=== PATIENT | female | born 1945 | race Caucasian/White ===

== ENCOUNTER 2017-11-08 10:54 | Observation (INO) | payer OTHER, MEDICARE ==
[2017-11-08] MEDS: NS 500 ML IV (11:40)
[2017-11-08 12:08] LABS: BASO % 0.6 % (0.0-1.0); EOS # 0.1 10^3/uL (0.0-0.50); EOS % 2.1 % (0.0-3.0); HEMATOCRIT 38.1 % (36.0-47.0); HEMOGLOBIN 12.6 g/dl (12.0-15.5); IMMATURE GRANULOCYTE % 0.1 % (0-3.0); LYMPH # 2.6 10^3/uL (1.5-4.5); LYMPH % 38.5 % (24.0-44.0); MEAN CORPUSCULAR HEMOGLOBIN 30.9 pg (27.0-33.0); MEAN CORPUSCULAR HGB CONC 33.1 g/dl (32.0-36.5); MEAN CORPUSCULAR VOLUME 93.4 fl (80.0-96.0); MONO # 0.4 10^3/uL (0.0-0.8); MONO % 5.9 % (0.0-5.0); NEUTROPHILS # 3.6 10^3/uL (1.8-7.7); NEUTROPHILS % 52.8 % (36.0-66.0); PLATELET COUNT, AUTOMATED 275 10^3/uL (150-450); RED BLOOD COUNT 4.08 10^6/uL (4.00-5.40); RED CELL DISTRIBUTION WIDTH 12.8 % (11.5-14.5); WHITE BLOOD COUNT 6.8 10^3/uL (4.0-10.0)
[2017-11-08 12:15] LABS: INR 1.19; PROTHROMBIN TIME 15.3 SECONDS (12.4-14.5)
[2017-11-08 12:16] LABS: PARTIAL THROMBOPLASTIN TIME 34.9 SECONDS (26.8-37.9)
[2017-11-08 12:21] LABS: ANION GAP 10 MEQ/L (8-16); BLOOD UREA NITROGEN 24 MG/DL (7-18); CALCIUM LEVEL 9.4 MG/DL (8.8-10.2); CARBON DIOXIDE LEVEL 29 MEQ/L (21-32); CHLORIDE LEVEL 103 MEQ/L (98-107); CREATININE FOR GFR 0.96 MG/DL (0.55-1.30); GLOMERULAR FILTRATION RATE > 60.0 (>39); GLUCOSE, FASTING 79 MG/DL (70-100); SODIUM LEVEL 142 MEQ/L (136-145)
[2017-11-08 12:24] LABS: CPK CREATINE PHOSPHOKINASE 88 U/L (26-192); TROPONIN I 0.29 NG/ML (< 0.10)
[2017-11-08 12:25] LABS: CK-MB VALUE MASS 1.6 NG/ML (<3.6); MB/CK RELATIVE INDEX 1.81 (< OR =4)
[2017-11-08] MEDS ORDERED: ISOVUE-370 76% 100ML VIAL (Q9967) As Ordered (12:58)
[2017-11-08] MEDS: ASPIRIN 81 MG CHEW TABLET PO (13:15)
[2017-11-08 13:51] LABS: CK-MB VALUE MASS 1.5 NG/ML (<3.6); CPK CREATINE PHOSPHOKINASE 71 U/L (26-192); MB/CK RELATIVE INDEX 2.11 (< OR =4); TROPONIN I 0.29 NG/ML (< 0.10)
[2017-11-08] MEDS ORDERED: ACETAMINOPHEN 500 MG TAB PO (15:15)
[2017-11-08 20:15] LABS: CK-MB VALUE MASS 1.8 NG/ML (<3.6); CPK CREATINE PHOSPHOKINASE 75 U/L (26-192)
[2017-11-08] MEDS ORDERED: SLF 3 ML SYR IV (20:15)
[2017-11-08] MEDS: SLF 3 ML SYR IV (20:24)
[2017-11-08] MEDS: FLECAINIDE 50MG TABLET PO (20:24)
[2017-11-08] MEDS: APIXABAN 5 MG TAB (ELIQUIS) PO (20:24)
[2017-11-09 05:49] LABS: BASO % 0.5 % (0.0-1.0); EOS # 0.2 10^3/uL (0.0-0.50); EOS % 3.9 % (0.0-3.0); HEMATOCRIT 37.3 % (36.0-47.0); HEMOGLOBIN 12.2 g/dl (12.0-15.5); IMMATURE GRANULOCYTE % 0.2 % (0-3.0); LYMPH # 2.3 10^3/uL (1.5-4.5); LYMPH % 39.4 % (24.0-44.0); MEAN CORPUSCULAR HEMOGLOBIN 30.2 pg (27.0-33.0); MEAN CORPUSCULAR HGB CONC 32.7 g/dl (32.0-36.5); MEAN CORPUSCULAR VOLUME 92.3 fl (80.0-96.0); MONO # 0.4 10^3/uL (0.0-0.8); MONO % 7.2 % (0.0-5.0); NEUTROPHILS # 2.9 10^3/uL (1.8-7.7); NEUTROPHILS % 48.8 % (36.0-66.0); PLATELET COUNT, AUTOMATED 254 10^3/uL (150-450); RED BLOOD COUNT 4.04 10^6/uL (4.00-5.40); WHITE BLOOD COUNT 5.9 10^3/uL (4.0-10.0)
[2017-11-09] MEDS: SLF 3 ML SYR IV (06:00)
[2017-11-09 06:10] LABS: ANION GAP 7 MEQ/L (8-16); BLOOD UREA NITROGEN 20 MG/DL (7-18); CALCIUM LEVEL 8.8 MG/DL (8.8-10.2); CARBON DIOXIDE LEVEL 29 MEQ/L (21-32); CHLORIDE LEVEL 107 MEQ/L (98-107); CREATININE FOR GFR 0.92 MG/DL (0.55-1.30); GLOMERULAR FILTRATION RATE > 60.0 (>39); GLUCOSE, FASTING 67 MG/DL (70-100); POTASSIUM SERUM 3.9 MEQ/L (3.5-5.1); SODIUM LEVEL 143 MEQ/L (136-145); TROPONIN I 0.14 NG/ML (< 0.10)
[2017-11-09] MEDS: APIXABAN 5 MG TAB (ELIQUIS) PO (08:11)
[2017-11-09] MEDS: LOSARTAN 25 MG TAB PO (08:11)
[2017-11-09] MEDS: ASPIRIN 81 MG ENTERIC TAB PO (08:11)
[2017-11-09] MEDS: VITAMIN D 1,000 INTERNATIONAL UNITS TABLET PO (08:11)
[2017-11-09] MEDS: FLECAINIDE 50MG TABLET PO (08:11)
== END 2017-11-09 11:11 | disposition home or self-care (01) ==
LOC: M ED 10:54 → M ED INP 15:14 → M PCU 16:42
DX: S20.219A Contusion of unspecified front wall of thorax, initial encounter (principal); V49.40XA Driver injured in collision with unspecified motor vehicles in traffic accident, initial encounter; Y92.410 Unspecified street and highway as the place of occurrence of the external cause; Y99.9 Unspecified external cause status; Y93.9 Activity, unspecified; I48.0 Paroxysmal atrial fibrillation; Z79.02 Long term (current) use of antithrombotics/antiplatelets; Z79.82 Long term (current) use of aspirin; I10 Essential (primary) hypertension; R79.89 Other specified abnormal findings of blood chemistry; Z79.899 Other long term (current) drug therapy
CPT/HCPCS: Q9967

== ENCOUNTER 2019-03-13 02:47 | Emergency (ER) | payer MEDICARE, OTHER ==
[~2019-03-13] VITALS: Ht 154.9 cm; Wt 51.8 kg
[~2019-03-13 02:47] MED LIST: ACET500T15 PO; ASPI81CH49 PO; ASPI81TAEC PO; ELIQ5TAB PO; FLEC25TA PO; FLEC50HA PO; LOPR1TAB6 PO; LOSA25TA14 PO; NO HOME MEDS; VITA-122 PO; vitaminD OR
[2019-03-13 03:18] LABS: BASO % 0.7 % (0.0-1.0); EOS # 0.3 10^3/uL (0.0-0.5); EOS % 4.2 % (0.0-3.0); HEMATOCRIT 41.9 % (36.0-47.0); HEMOGLOBIN 13.5 g/dl (12.0-15.5); LYMPH # 2.7 10^3/uL (1.5-5.0); LYMPH % 44.3 % (24.0-44.0); MEAN CORPUSCULAR HEMOGLOBIN 30.8 pg (27.0-33.0); MEAN CORPUSCULAR HGB CONC 32.2 g/dl (32.0-36.5); MEAN CORPUSCULAR VOLUME 95.4 fl (80.0-96.0); MONO # 0.4 10^3/uL (0.0-0.8); MONO % 6.7 % (0.0-5.0); NEUTROPHILS # 2.7 10^3/uL (1.5-8.5); NEUTROPHILS % 43.9 % (36.0-66.0); PLATELET COUNT, AUTOMATED 272 10^3/uL (150-450); RED BLOOD COUNT 4.39 10^6/uL (4.00-5.40)
[2019-03-13 03:43] LABS: BLOOD UREA NITROGEN 22 MG/DL (7-18); CALCIUM LEVEL 9.3 MG/DL (8.8-10.2); CARBON DIOXIDE LEVEL 29 MEQ/L (21-32); CHLORIDE LEVEL 107 MEQ/L (98-107); CK-MB VALUE MASS 1.2 NG/ML (<3.6); CPK CREATINE PHOSPHOKINASE 72 U/L (26-192); CREATININE FOR GFR 1.14 MG/DL (0.55-1.30); GLOMERULAR FILTRATION RATE 49.6 (>39); GLUCOSE, FASTING 91 MG/DL (70-100); MB/CK RELATIVE INDEX 1.67 (< OR =4); SODIUM LEVEL 142 MEQ/L (136-145); TROPONIN I < 0.02 NG/ML (< 0.10)
[2019-03-13 07:24] LABS: FREE THYROXINE INDEX 3.6 % (1.3-4.8); MAGNESIUM LEVEL 1.9 MG/DL (1.8-2.4); T UPTAKE 34 % (30-39); THYROXINE (T4) 10.6 UG/DL (4.5-12.0)
[2019-03-13 08:18] VITALS: BP 130/70
--- NOTE | 2019-03-13 09:42 | REP ---
Single view chest: 03/13/2019. Indication: Chest pain. Comparison: November 08, 2017. Findings: The lungs are clear. There is no pleural effusion or pneumothorax. Cardiomediastinal silhouette is unremarkable. Impression: No acute cardiopulmonary process. Electronically Signed by Claude Allan DO 03/13/2019 09:34 A
--- NOTE | 2019-03-13 10:28 | ECGEPIP ---
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
== END 2019-03-13 08:55 | disposition home or self-care (01) ==
LOC: M ED 02:47
DX: R00.2 Palpitations (principal); R00.0 Tachycardia, unspecified; I10 Essential (primary) hypertension; Z79.01 Long term (current) use of anticoagulants; Z86.79 Personal history of other diseases of the circulatory system; Z88.8 Allergy status to other drugs, medicaments and biological substances

== ENCOUNTER 2019-09-02 07:45 | Emergency (ER) | payer MEDICARE ==
[~2019-09-02] VITALS: Ht 157.5 cm; Wt 50.0 kg
[2019-09-02] MEDS ORDERED: NS 1,000 ML IV ONE (08:15)
[2019-09-02] MEDS ORDERED: NITROGLYCERIN 0.4 MG SUBL TABLET SL PRN (08:15)
[2019-09-02 08:19] VITALS: BP 176/91
[2019-09-02 08:26] LABS: BASO % 0.6 % (0.0-1.0); EOS # 0.1 10^3/uL (0.0-0.5); EOS % 1.7 % (0.0-3.0); HEMATOCRIT 39.5 % (36.0-47.0); HEMOGLOBIN 12.9 g/dl (12.0-15.5); LYMPH # 1.2 10^3/uL (1.5-5.0); LYMPH % 22.2 % (24.0-44.0); MEAN CORPUSCULAR HGB CONC 32.7 g/dl (32.0-36.5); MONO # 0.4 10^3/uL (0.0-0.8); MONO % 6.6 % (0.0-5.0); NEUTROPHILS # 3.7 10^3/uL (1.5-8.5); NEUTROPHILS % 68.7 % (36.0-66.0); PLATELET COUNT, AUTOMATED 287 10^3/uL (150-450); RED BLOOD COUNT 4.16 10^6/uL (4.00-5.40); WHITE BLOOD COUNT 5.4 10^3/uL (4.0-10.0)
[2019-09-02] MEDS ORDERED: ATROPINE SULF 1MG/10ML SYRINGE (J0461) As Ordered ONE (08:27)
[2019-09-02 08:34] LABS: INR 1.42
[2019-09-02 08:35] LABS: PARTIAL THROMBOPLASTIN TIME 33.9 SECONDS (25.0-38.4)
[2019-09-02] MEDS ORDERED: ACETAMINOPHEN TAB 650MG DOSE (2X325MG) PO ONE (08:45)
[2019-09-02 08:54] LABS: ALBUMIN 3.7 GM/DL (3.2-5.2); ALT/SGPT 16 U/L (12-78); BILIRUBIN,DIRECT 0.1 MG/DL (0.0-0.2); BILIRUBIN,TOTAL 0.5 MG/DL (0.2-1.0); BLOOD UREA NITROGEN 22 MG/DL (7-18); CALCIUM LEVEL 9.2 MG/DL (8.8-10.2); CARBON DIOXIDE LEVEL 29 MEQ/L (21-32); CHLORIDE LEVEL 103 MEQ/L (98-107); CPK CREATINE PHOSPHOKINASE 52 U/L (26-192); CREATININE FOR GFR 1.06 MG/DL (0.55-1.30); FREE T4 1.09 NG/DL (0.76-1.46); GLOMERULAR FILTRATION RATE 53.9 (>39); GLUCOSE, FASTING 103 MG/DL (70-100); LIPASE 91 U/L (73-393); MB/CK RELATIVE INDEX 1.92 (< OR =4); POTASSIUM SERUM 3.9 MEQ/L (3.5-5.1); SODIUM LEVEL 140 MEQ/L (136-145); TOTAL PROTEIN 7.7 GM/DL (6.4-8.2); TROPONIN I < 0.02 NG/ML (< 0.10)
--- NOTE | 2019-09-02 10:07 | REP ---
CHEST: REASON: Chest pain. FINDINGS: The technique utilized in obtaining the radiograph has magnified the cardiac silhouette and accentuated the interstitial markings. The superior mediastinal structures are midline. The cardiac silhouette is unremarkable in size, shape, and position. The diaphragmatic surfaces of the lungs are regular, and the costophrenic angles are clear. The pulmonary de la torre are clear. The imaged osseous structures are intact. IMPRESSION: There is no acute cardiopulmonary disease. Electronically Signed by Mitch Grove DO 09/02/2019 10:45 A
--- NOTE | 2019-09-02 11:39 | ECGEPIP ---
[facility] - ED Test Date: 2019-09-02 Pat Name: TRISH JOHNSON Department: Room: - Gender: Female Manager Epic: brandy : 1945 Requested By: Fortino Singh Order Number: [id number] Reading MD: Fortino Singh Measurements Intervals [place] Rate: 71 P: 20 [place]: 194 QRS: 52 QRSD: 86 T: 59 QT: 385 QTc: 421 Interpretive Statements SINUS RHYTHM MODERATE ST DEPRESSION DELAYED R WAVE PROGRESSION BASELINE WANDERING MAY AFFECT READING CW 03/13/[address] T WAVE CHANGES Electronically Signed on 09-02-2019 11:39:52 EDT by Fortino Singh
--- NOTE | 2019-09-02 11:40 | ECGEPIP ---
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
[2019-09-02 13:24] LABS: CK-MB VALUE MASS < 1.0 NG/ML (<3.6); CPK CREATINE PHOSPHOKINASE 40 U/L (26-192); TROPONIN I < 0.02 NG/ML (< 0.10)
[2019-09-02 15:14] LABS: CK-MB VALUE MASS < 1.0 NG/ML (<3.6); CPK CREATINE PHOSPHOKINASE 43 U/L (26-192); MB/CK RELATIVE INDEX 2.33 (< OR =4); TROPONIN I < 0.02 NG/ML (< 0.10)
[2019-09-02 15:46] VITALS: BP 119/64
--- NOTE | 2019-09-02 15:57 | ECGEPIP ---
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
--- NOTE | 2019-09-02 15:58 | ECGEPIP ---
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
== END 2019-09-02 15:49 | disposition home or self-care (01) ==
LOC: M ED 07:45
DX: R07.9 Chest pain, unspecified (principal); I48.20 Chronic atrial fibrillation, unspecified; I10 Essential (primary) hypertension; F17.210 Nicotine dependence, cigarettes, uncomplicated; Z88.6 Allergy status to analgesic agent; Z79.899 Other long term (current) drug therapy

== ENCOUNTER 2019-12-12 05:52 | Emergency (ER) | payer MEDICARE ==
[~2019-12-12] VITALS: Ht 154.9 cm; Wt 47.0 kg
[2019-12-12 06:39] LABS: BASO % 0.5 % (0.0-1.0); EOS % 0.5 % (0.0-3.0); HEMATOCRIT 39.8 % (36.0-47.0); HEMOGLOBIN 14.1 g/dl (12.0-15.5); LYMPH # 1.1 10^3/uL (1.5-5.0); LYMPH % 18.7 % (24.0-44.0); MEAN CORPUSCULAR HEMOGLOBIN 32.6 pg (27.0-33.0); MEAN CORPUSCULAR HGB CONC 35.4 g/dl (32.0-36.5); MEAN CORPUSCULAR VOLUME 91.9 fl (80.0-96.0); MONO # 0.5 10^3/uL (0.0-0.8); MONO % 7.9 % (0.0-5.0); NEUTROPHILS # 4.2 10^3/uL (1.5-8.5); NEUTROPHILS % 72.2 % (36.0-66.0); PLATELET COUNT, AUTOMATED 326 10^3/uL (150-450); RED BLOOD COUNT 4.33 10^6/uL (4.00-5.40); WHITE BLOOD COUNT 5.8 10^3/uL (4.0-10.0)
[2019-12-12 06:57] LABS: INR 1.49; PROTHROMBIN TIME 17.7 SECONDS (11.8-14.0)
[2019-12-12 06:58] LABS: PARTIAL THROMBOPLASTIN TIME 38.2 SECONDS (25.0-38.4)
[2019-12-12 07:00] LABS: BLOOD UREA NITROGEN 18 MG/DL (7-18); CALCIUM LEVEL 9.4 MG/DL (8.8-10.2); CARBON DIOXIDE LEVEL 27 MEQ/L (21-32); CHLORIDE LEVEL 103 MEQ/L (98-107); CK-MB VALUE MASS < 1.0 NG/ML (<3.6); CPK CREATINE PHOSPHOKINASE 63 U/L (26-192); CREATININE FOR GFR 0.92 MG/DL (0.55-1.30); FREE T4 1.34 NG/DL (0.76-1.46); GLOMERULAR FILTRATION RATE > 60.0 (>39); GLUCOSE, FASTING 102 MG/DL (70-100); MB/CK RELATIVE INDEX 1.59 (< OR =4); POTASSIUM SERUM 3.6 MEQ/L (3.5-5.1); SODIUM LEVEL 137 MEQ/L (136-145); THYROID STIMULATING HORMONE 0.945 uIU/ML (0.358-3.740); TROPONIN I < 0.02 NG/ML (< 0.10)
[2019-12-12] MEDS ORDERED: NS 500 ML IV ONE (07:00)
--- NOTE | 2019-12-12 07:02 | REPVR ---
PROCEDURE INFORMATION: Exam: CT Head Without Contrast Exam date and time: 12/12/2019 6:24 AM Age: 74 years old Clinical indication: Dizziness; Additional info: Syncope TECHNIQUE: Imaging protocol: Computed tomography of the head without contrast. Radiation optimization: All CT scans at this facility use at least one of these dose optimization techniques: automated exposure control; mA and/or kV adjustment per patient size (includes targeted exams where dose is matched to clinical indication); or iterative reconstruction. COMPARISON: No relevant prior studies available. FINDINGS: There are no intra-or extra-axial hemorrhages or fluid collections. There is no mass effect or midline shift. Ventricles are symmetrical and nondilated for age. There are no focal parenchymal abnormalities. No calvarial fractures. IMPRESSION: No acute intracranial process. No intracranial hemorrhage. Electronically signed by: Hay Peralta On 12/12/2019 07:02:04 AM
--- NOTE | 2019-12-12 08:21 | REP ---
Clinical: Abdominal pain with constipation and nausea. Technique: Single supine view of the abdomen and pelvis. Findings: Moderate fecal stasis and presumed constipation. No bowel obstruction or perforation. No organomegaly. No foreign body. Skeletal structures demonstrate age-related degenerative changes. Impression: Moderate fecal stasis and presumed constipation. Electronically Signed by Ad Marti MD 12/12/2019 08:13 A
--- NOTE | 2019-12-12 11:06 | ECGEPIP ---
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
[2019-12-12 11:15] VITALS: BP 135/71
--- NOTE | 2019-12-12 12:12 | REP ---
DUPLEX CAROTID SONOGRAPHY: HISTORY: Dizziness with standing. FINDINGS: Antegrade flow was observed in both vertebral arteries. RIGHT CAROTID: The right common carotid artery shows diffuse intimal thickening. There is mild soft plaquing in the bulb and proximal ICA on two-dimensional scanning. Color flow and spectral Doppler interrogation are unremarkable on the right. Incidental note is made of a anechoic areas in the thyroid on the right consistent with cysts. Velocity Chart Right Carotid: PSV EDV Right CCA 90 cm/s Right ICA 76 cm/s 22 cm/s Right ECA 87 cm/s Right ICA/CCA ratio normal 0.8 . IMPRESSION: Less than 50% category narrowing in the right ICA by Doppler velocity criteria. Incidental right thyroid cysts. LEFT CAROTID: The left common carotid artery is unremarkable except for some mild diffuse intimal thickening. There is mixed plaquing in the bulb and proximal ICA on the left mild in degree. Color flow and spectral Doppler interrogation are unremarkable on the left. Velocity Chart Left Carotid: PSV EDV Left CCA 102 cm/s Left ICA 77 cm/s 32 cm/s Left ECA 63 cm/s Left ICA/CCA ratio 0.8. IMPRESSION: Less than 50% category narrowing in the left ICA by Doppler velocity criteria. Electronically Signed by Neeraj Brice MD 12/12/2019 12:50 P
--- NOTE | 2019-12-12 19:22 | ED PDOC ---
Post-Departure Follow-Up dr ramos faxed carotid us for fu Fortino Roland MD Dec 12, 2019 19:22
== END 2019-12-12 11:28 | disposition home or self-care (01) ==
LOC: M ED 05:52
DX: I95.1 Orthostatic hypotension (principal); E04.1 Nontoxic single thyroid nodule; I10 Essential (primary) hypertension; I48.91 Unspecified atrial fibrillation; F41.9 Anxiety disorder, unspecified; M85.9 Disorder of bone density and structure, unspecified; Z79.899 Other long term (current) drug therapy; Z79.82 Long term (current) use of aspirin; Z79.01 Long term (current) use of anticoagulants; Z88.8 Allergy status to other drugs, medicaments and biological substances

== ENCOUNTER 2020-03-09 14:20 | Emergency (ER) | payer OTHER, MEDICARE ==
[~2020-03-09] VITALS: Ht 154.9 cm; Wt 46.8 kg
[2020-03-09 14:35] VITALS: BP 176/80
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
== END 2020-03-09 15:00 | disposition home or self-care (01) ==
LOC: M ED 14:20 → EDBD 14:20 → M ED 15:00
DX: S09.90XA Unspecified injury of head, initial encounter (principal); M54.2 Cervicalgia; V49.40XA Driver injured in collision with unspecified motor vehicles in traffic accident, initial encounter; I48.91 Unspecified atrial fibrillation; I10 Essential (primary) hypertension; M25.78 Osteophyte, vertebrae; M48.02 Spinal stenosis, cervical region; Z79.01 Long term (current) use of anticoagulants; Z79.899 Other long term (current) drug therapy

== ENCOUNTER 2020-11-16 01:16 | Emergency (ER) | payer MEDICARE, OTHER ==
[~2020-11-16] VITALS: Ht 154.9 cm; Wt 46.8 kg
[~2020-11-16 01:16] MED LIST changes: +ASPI-569 PO; -ASPI81TAEC PO
[2020-11-16] MEDS ORDERED: CALC1TAB63 PO (01:25)
[2020-11-16 02:18] LABS: BASO % 0.6 % (0.0-1.0); EOS # 0.2 10^3/uL (0.0-0.5); EOS % 3.6 % (0.0-3.0); HEMATOCRIT 38.1 % (36.0-47.0); HEMOGLOBIN 12.3 g/dl (12.0-15.5); LYMPH # 2.2 10^3/uL (1.5-5.0); LYMPH % 41.8 % (24.0-44.0); MEAN CORPUSCULAR HEMOGLOBIN 30.9 pg (27.0-33.0); MEAN CORPUSCULAR HGB CONC 32.3 g/dl (32.0-36.5); MEAN CORPUSCULAR VOLUME 95.7 fl (80.0-96.0); MONO # 0.4 10^3/uL (0.0-0.8); NEUTROPHILS # 2.5 10^3/uL (1.5-8.5); NEUTROPHILS % 46.8 % (36.0-66.0); PLATELET COUNT, AUTOMATED 261 10^3/uL (150-450); RED BLOOD COUNT 3.98 10^6/uL (4.00-5.40); WHITE BLOOD COUNT 5.3 10^3/uL (4.0-10.0)
[2020-11-16 02:31] LABS: INR 1.04; PARTIAL THROMBOPLASTIN TIME 32.5 SECONDS (24.2-38.5); PROTHROMBIN TIME 13.8 SECONDS (12.5-14.3)
--- NOTE | 2020-11-16 03:00 | REPVR ---
PROCEDURE INFORMATION: Exam: XR Chest Exam date and time: 11/16/2020 1:50 AM Age: 74 years old Clinical indication: Other: Chest pain TECHNIQUE: Imaging protocol: XR of the chest. Views: 1 view. COMPARISON: 1. [place] PORTABLE CHEST X-RAY 2019-09-02 08:02 2. [place] PORTABLE CHEST X-RAY 2019-03-13 03:[address] Chest with contrast 2017-11-08 13:04 FINDINGS: Lungs: Unremarkable. No consolidation. Pleural spaces: Unremarkable. No pleural effusion. No pneumothorax. Heart/Mediastinum: Unremarkable. No cardiomegaly. Bones/joints: Unremarkable. IMPRESSION: No acute findings. Electronically signed by: Andre Cabrera On 11/16/2020 02:59:23 AM
[2020-11-16 03:08] LABS: ALBUMIN 3.7 GM/DL (3.2-5.2); ALT/SGPT 36 U/L (12-78); BILIRUBIN,DIRECT 0.1 MG/DL (0.0-0.2); BILIRUBIN,TOTAL 0.4 MG/DL (0.2-1.0); BLOOD UREA NITROGEN 23 MG/DL (7-18); CALCIUM LEVEL 9.3 MG/DL (8.8-10.2); CARBON DIOXIDE LEVEL 31 MEQ/L (21-32); CHLORIDE LEVEL 106 MEQ/L (98-107); CK-MB VALUE MASS < 1.0 NG/ML (<3.6); CPK CREATINE PHOSPHOKINASE 101 U/L (26-192); CREATININE FOR GFR 0.91 MG/DL (0.55-1.30); GLOMERULAR FILTRATION RATE > 60.0 (>39); GLUCOSE, FASTING 89 MG/DL (70-100); LIPASE 177 U/L (73-393); MAGNESIUM LEVEL 1.9 MG/DL (1.8-2.4); MB/CK RELATIVE INDEX 0.99 (< OR =4); POTASSIUM SERUM 4.1 MEQ/L (3.5-5.1); SODIUM LEVEL 140 MEQ/L (136-145); TOTAL PROTEIN 6.8 GM/DL (6.4-8.2); TROPONIN I < 0.02 NG/ML (< 0.10)
[2020-11-16] MEDS ORDERED: LABETALOL 100MG TAB PO ONE (04:40)
[2020-11-16 05:57] LABS: RSV AMPLIFICATION NEGATIVE (NEGATIVE)
[2020-11-16] MEDS ORDERED: HEPARIN SOD (PORCINE) 5000UNITS/ML 1ML VIAL/SYRINGE IV ONE (06:40)
[2020-11-16 08:15] VITALS: BP 165/82
--- NOTE | 2020-11-16 21:05 | ECGEPIP ---
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
--- NOTE | 2020-11-16 21:06 | ECGEPIP ---
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
== END 2020-11-16 08:26 | disposition short-term general hospital (02) ==
LOC: M ED 01:16
DX: I48.91 Unspecified atrial fibrillation (principal); R94.31 Abnormal electrocardiogram [ECG] [EKG]; Z79.01 Long term (current) use of anticoagulants; Z79.899 Other long term (current) drug therapy; Z88.8 Allergy status to other drugs, medicaments and biological substances

== ENCOUNTER 2020-11-18 11:48 | Emergency (ER) | payer MEDICARE, OTHER ==
[~2020-11-18] VITALS: Ht 154.9 cm; Wt 46.4 kg
[~2020-11-18 11:48] MED LIST changes: +CALC1TAB63 PO
[2020-11-18 11:49] VITALS: BP 172/78
== END 2020-11-18 12:40 | disposition home or self-care (01) ==
LOC: M ED 11:48
DX: L76.32 Postprocedural hematoma of skin and subcutaneous tissue following other procedure (principal); I10 Essential (primary) hypertension; E78.5 Hyperlipidemia, unspecified; I48.91 Unspecified atrial fibrillation; Z79.01 Long term (current) use of anticoagulants; Z79.899 Other long term (current) drug therapy; Z88.6 Allergy status to analgesic agent

== ENCOUNTER → 2020-12-03 | Outpatient (CLI) | payer MEDICARE, OTHER ==
--- NOTE | 2020-12-04 14:19 | REPVR ---
PROCEDURE INFORMATION: Exam: MR Cervical Spine Without Contrast Exam date and time: 12/03/2020 5:45 PM Age: 74 years old Clinical indication: Neck pain; Patient HX: PT states she tripped over a step in jan, 2020 and hurt her c-spine , continues to have pain especially when she lays on her back; Additional info: Stenosis, c spine TECHNIQUE: Imaging protocol: Multiplanar magnetic resonance images of the cervical spine without contrast. COMPARISON: CT Spine,cervical w/o contrast 03/09/2020 2:23 PM FINDINGS: Vertebrae: Modic 1 changes (subchondral vertebral end plate cancellous bone edema) at anterior C3-C4 and posterior C5-C6. No fracture. Spinal cord: Normal signal. See below. C2-C3: No significant disc disease. No significant spinal stenosis. C3-C4: Moderate posterior annular bulging. Mild anterior cord impingement. C4-C5: Moderate disc narrowing. Mild posterior annular bulging and spondylosis. The AP thecal sac dimension is 10.0 mm. Mild bilateral neural foraminal narrowing. C5-C6: Moderate disc narrowing. 2.3 mm retrolisthesis in the supine position. Central disc protrusion measuring 3.9 mm AP dimension. Associated mild central spondylosis. Mild anterior cord impingement. The AP thecal sac dimension is 7.3 mm. C6-C7: Mild posterior annular bulging. C7-T1: No significant disc disease. No significant spinal stenosis. Soft tissues: Unremarkable. Vertebral arteries: Expected flow voids in the vertebral arteries. IMPRESSION: Borderline C4-C5 spinal stenosis. Central C5-C6 disc protrusion with cord impingement. Moderate C5-C6 spinal stenosis with mild anterior cord impingement. Posterior C3-C4 annular bulging with mild anterior cord impingement. Please see additional findings as above. Electronically signed by: Maxi Gomez On 12/04/2020 14:18:40 PM
== END ==
LOC: M RAD 16:46
PROVIDERS: ATTEND Internal Medicine
DX: M48.02 Spinal stenosis, cervical region (principal)

== ENCOUNTER → 2020-12-31 | Outpatient (CLI) | payer MEDICARE ==
--- NOTE | 2020-12-31 09:23 | REPMRS ---
Patient History The patient states she had a clinical breast exam in November 2020. Patient is postmenopausal. Family history of prostate cancer at age 50 or over in brother, ovarian cancer at age 74 in mother. Patient states no breast complaints today. Patient has signed MRS History Sheet. Digital Woman Screen Mammo: December 31, 2020 - Exam #: [id number] Bilateral CC and MLO view(s) were taken. Technologist: Daisha Resendiz, Technologist Prior study comparison: December 25, 2018, bilateral digital mammo screening bilat, performed at [facility]. December 16, 2016, bilateral digital mammo screening bilat, performed at [facility]. September 30, 2014, bilateral digital mammo screening bilat, performed at [facility]. FINDINGS: The breast tissue is heterogeneously dense. This may lower the sensitivity of mammography. The Volpara volumetric breast density category is: C. There is a moderate amount of heterogeneously dense fibroglandular tissue which is fairly symmetric. There is no interval development of dominant mass, architectural distortion, or grouped microcalcification typical of malignancy. There has been no change in the appearance of the mammogram from the prior studies. 3-D tomosynthesis shows no additional findings. Assessment: BI-RADS/ACR category 1 mammogram. Negative Mammogram. Recommendation Routine screening mammogram of both breasts in 1 year (for women over age 40). This patient's [facility] Lifetime Breast Cancer RIsk is estimated at 2.7 %. This mammogram was interpreted with the aid of an FDA-approved computer-aided dectection system. Electronically Signed By: Rufus Brice MD 12/31/20 0922
--- NOTE | 2020-12-31 13:18 | DEXAMM ---
INDICATION: OSTEOPOROSIS. COMPARISON: Comparison bone densitometry studies December 16, 2018 and a September 03, 2002. TECHNIQUE: Bone density was measured using dual-energy x-ray absorptionmetry (DEXA). FINDINGS: AP SPINE L1-L4 BMD 0.928 g/cm2 Young Adult T-Score -2.2 Age Matched Z-Score -0.4. LT FEMUR, TOTAL BMD 0.699 g/cm2 Young Adult T-Score -2.5 Age Matched Z-Score -0.7. LT NECK BMD 0.647 g/cm2 Young Adult T-Score -2.8 Age Matched Z-Score -0.9. RT FEMUR, TOTAL BMD 0.747 g/cm2 Young Adult T-Score -2.1 Age Matched Z-Score -0.3. RT NECK BMD 0.709 g/cm2 Young Adult T-Score -2.4 Age Matched Z-Score -0.4. IMPRESSION: There is low bone density of the spine. There is osteoporosis of the left hip. There is low bone density of the right hip. The density of the spine has decreased 12.5% since the initial exam on September 03, 2002. The density of the spine decreased 3.3% since most recent exam on December 25, 2018. The density of the left hip has decreased 14.9% since initial exam on September 03, 2002. The density of the left hip has decreased 4.6% since most recent exam on December 25, 2018. The density of the right hip has decreased 10.5% since the initial exam on September 06, 2010. The density of the right hip has decreased 7.4% since the most recent exam on December 25, 2018. FOLLOW-UP: Recommendation for the next bone density exam: 2 years. <Electronically signed by Rufus Brice > 12/31/20 0430
== END ==
LOC: M WHC 07:38
PROVIDERS: ATTEND Internal Medicine
DX: Z12.31 Encounter for screening mammogram for malignant neoplasm of breast (principal); M85.851 Other specified disorders of bone density and structure, right thigh; M85.852 Other specified disorders of bone density and structure, left thigh

== ENCOUNTER 2021-02-28 03:23 | Emergency (ER) | payer MEDICARE ==
[~2021-02-28] VITALS: Ht 154.9 cm; Wt 48.1 kg
[2021-02-28 04:25] LABS: BASO % 0.8 % (0.0-1.0); EOS # 0.2 10^3/uL (0.0-0.5); EOS % 4.4 % (0.0-3.0); HEMATOCRIT 39.7 % (36.0-47.0); LYMPH % 40.5 % (24.0-44.0); MEAN CORPUSCULAR HEMOGLOBIN 30.9 pg (27.0-33.0); MEAN CORPUSCULAR HGB CONC 32.7 g/dl (32.0-36.5); MEAN CORPUSCULAR VOLUME 94.3 fl (80.0-96.0); MONO # 0.4 10^3/uL (0.0-0.8); MONO % 7.7 % (2.0-8.0); NEUTROPHILS # 2.3 10^3/uL (1.5-8.5); NEUTROPHILS % 46.4 % (36.0-66.0); PLATELET COUNT, AUTOMATED 274 10^3/uL (150-450); RED BLOOD COUNT 4.21 10^6/uL (4.00-5.40)
[2021-02-28 04:51] LABS: INR 1.04
[2021-02-28 05:05] LABS: ALBUMIN 3.5 GM/DL (3.2-5.2); ALT/SGPT 27 U/L (12-78); BILIRUBIN,DIRECT < 0.1 MG/DL (0.0-0.2); BILIRUBIN,TOTAL 0.3 MG/DL (0.2-1.0); CK-MB VALUE MASS < 1.0 NG/ML (<3.6); CPK CREATINE PHOSPHOKINASE 92 U/L (26-192); LIPASE 169 U/L (73-393); MB/CK RELATIVE INDEX 1.09 (< OR =4); TOTAL PROTEIN 6.9 GM/DL (6.4-8.2); TROPONIN I < 0.02 NG/ML (< 0.10)
[2021-02-28 05:17] LABS: BLOOD UREA NITROGEN 25 MG/DL (7-18); CARBON DIOXIDE LEVEL 29 MEQ/L (21-32); CHLORIDE LEVEL 106 MEQ/L (98-107); CREATININE FOR GFR 0.98 MG/DL (0.55-1.30); GLOMERULAR FILTRATION RATE 58.7 (>39); GLUCOSE, FASTING 97 MG/DL (70-100); MAGNESIUM LEVEL 1.9 MG/DL (1.8-2.4); POTASSIUM SERUM 4.7 MEQ/L (3.5-5.1); SODIUM LEVEL 140 MEQ/L (136-145)
--- NOTE | 2021-02-28 06:34 | ECGEPIP ---
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
[2021-02-28] MEDS ORDERED: VITMTA PO (07:16)
[2021-02-28 07:34] LABS: FREE T4 0.92 NG/DL (0.76-1.46)
[2021-02-28] MEDS ORDERED: VITAMIN D 1,000 INTERNATIONAL UNITS TABLET PO ONE (08:00)
[2021-02-28] MEDS ORDERED: FLECAINIDE 50MG TABLET PO ONE (08:00)
[2021-02-28] MEDS ORDERED: LOSARTAN 25 MG TAB PO ONE (08:00)
[2021-02-28] MEDS ORDERED: APIXABAN 5 MG TAB (ELIQUIS) PO ONE (08:00)
[2021-02-28] MEDS ORDERED: MULTIVITAMINS/MINERALS THERAP 1 TAB PO ONE (08:00)
[2021-02-28 08:16] VITALS: BP 145/70
--- NOTE | 2021-02-28 08:19 | REP ---
INDICATION: palpitations COMPARISON: 11/16/2020 TECHNIQUE: PA and lateral. FINDINGS: The mediastinum and cardiac silhouette are normal. The lung de la torre are clear and without acute consolidation, effusion, or pneumothorax. The skeletal structures are intact and normal. IMPRESSION: No acute cardiopulmonary process. <Electronically signed by Ad Marti > 02/28/21 0814
[2021-02-28 09:47] LABS: CK-MB VALUE MASS < 1.0 NG/ML (<3.6); CPK CREATINE PHOSPHOKINASE 79 U/L (26-192); MB/CK RELATIVE INDEX 1.27 (< OR =4)
[2021-02-28 09:48] LABS: TROPONIN I 0.03 NG/ML (< 0.10)
[2021-02-28 10:25] VITALS: BP 145/65
--- NOTE | 2021-02-28 14:54 | ECGEPIP ---
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
== END 2021-02-28 10:25 | disposition home or self-care (01) ==
LOC: M ED 03:23
DX: R00.2 Palpitations (principal); I10 Essential (primary) hypertension; I25.2 Old myocardial infarction; Z79.01 Long term (current) use of anticoagulants; Z79.899 Other long term (current) drug therapy

== ENCOUNTER → 2021-10-01 | Outpatient (REF) | payer MEDICARE ==
[~2021-10-01] MED LIST changes: +LOSA25TA13 PO; -LOSA25TA14 PO; +VITMTA PO
== END ==
LOC: M LAB REF 16:21
PROVIDERS: ATTEND Internal Medicine
DX: R10.9 Unspecified abdominal pain (principal)

== ENCOUNTER → 2021-10-14 | Outpatient (CLI) | payer MEDICARE ==
[~2021-10-14] MED LIST changes: +GASTROGRAFIN SOLUTION 30ML (Q9963) ONE; +ISOVUE-370 76% 100ML VIAL ONE
== END ==
LOC: M PLAIMG 11:25
PROVIDERS: ATTEND Internal Medicine
DX: R10.31 Right lower quadrant pain (principal); K76.89 Other specified diseases of liver; M51.35 Other intervertebral disc degeneration, thoracolumbar region; M51.36 Other intervertebral disc degeneration, lumbar region; M41.9 Scoliosis, unspecified; K59.00 Constipation, unspecified; M46.98 Unspecified inflammatory spondylopathy, sacral and sacrococcygeal region
CPT/HCPCS: 74178; Q9963; Q9967

== ENCOUNTER 2021-12-13 22:05 | Emergency (ER) | payer MEDICARE ==
[~2021-12-13] VITALS: Ht 154.9 cm; Wt 77.3 kg
[~2021-12-13 22:05] MED LIST changes: -GASTROGRAFIN SOLUTION 30ML (Q9963) ONE; -ISOVUE-370 76% 100ML VIAL ONE
[2021-12-13] MEDS ORDERED: ONDANSETRON 4MG 2ML VIAL IV ONE (22:25)
[2021-12-13 22:30] LABS: BASO % 0.6 % (0.0-1.0); EOS # 0.3 10^3/uL (0.0-0.5); EOS % 3.7 % (0.0-3.0); HEMATOCRIT 38.2 % (36.0-47.0); HEMOGLOBIN 12.6 g/dl (12.0-15.5); LYMPH # 2.5 10^3/uL (1.5-5.0); LYMPH % 34.8 % (24.0-44.0); MEAN CORPUSCULAR HEMOGLOBIN 31.2 pg (27.0-33.0); MEAN CORPUSCULAR VOLUME 94.6 fl (80.0-96.0); MONO # 0.5 10^3/uL (0.0-0.8); MONO % 6.9 % (2.0-8.0); NEUTROPHILS # 3.8 10^3/uL (1.5-8.5); NEUTROPHILS % 53.6 % (36.0-66.0); PLATELET COUNT, AUTOMATED 278 10^3/uL (150-450); RED BLOOD COUNT 4.04 10^6/uL (4.00-5.40); WHITE BLOOD COUNT 7.1 10^3/uL (4.0-10.0)
[2021-12-13 22:42] LABS: INR 1.13
[2021-12-13 23:01] LABS: CK-MB VALUE MASS 1.2 NG/ML (<3.6); MB/CK RELATIVE INDEX 1.46 (< OR =4)
[2021-12-13 23:17] LABS: ALBUMIN 3.7 GM/DL (3.2-5.2); ALT/SGPT 27 U/L (12-78); BILIRUBIN,DIRECT < 0.1 MG/DL (0.0-0.2); BILIRUBIN,TOTAL 0.5 MG/DL (0.2-1.0); BLOOD UREA NITROGEN 26 MG/DL (7-18); CALCIUM LEVEL 9.4 MG/DL (8.8-10.2); CARBON DIOXIDE LEVEL 27 MEQ/L (21-32); CHLORIDE LEVEL 104 MEQ/L (98-107); CREATININE FOR GFR 0.88 MG/DL (0.55-1.30); GLOMERULAR FILTRATION RATE > 60.0 (>39); GLUCOSE, FASTING 106 MG/DL (70-100); LIPASE 165 U/L (73-393); NT-PRO BNP 180 PG/ML (<450); SODIUM LEVEL 138 MEQ/L (136-145); TOTAL PROTEIN 7.1 GM/DL (6.4-8.2)
[2021-12-14 00:46] VITALS: BP 155/73
== END 2021-12-14 01:26 | disposition home or self-care (01) ==
LOC: EDBD 22:05 → M ED 22:05
DX: R07.9 Chest pain, unspecified (principal); R00.2 Palpitations; I10 Essential (primary) hypertension; I45.10 Unspecified right bundle-branch block; Z86.79 Personal history of other diseases of the circulatory system; Z88.6 Allergy status to analgesic agent; Z79.899 Other long term (current) drug therapy
CPT/HCPCS: 71045; 80048; 80076; 82550; 82553; 83690; 83880; 84484; 85025; 85610; 87486; 87581; 87633; 87798; 93005; 93041; 94760; 96374; 99285; J2405

== ENCOUNTER 2021-12-28 04:38 | Inpatient (IN) | payer MEDICARE ==
[~2021-12-28] VITALS: Ht 154.9 cm; Wt 47.5 kg
[2021-12-28 05:13] LABS: BASO % 0.6 % (0.0-1.0); EOS # 0.2 10^3/uL (0.0-0.5); EOS % 2.8 % (0.0-3.0); HEMATOCRIT 40.1 % (36.0-47.0); HEMOGLOBIN 13.1 g/dl (12.0-15.5); LYMPH # 2.6 10^3/uL (1.5-5.0); LYMPH % 38.2 % (24.0-44.0); MEAN CORPUSCULAR HEMOGLOBIN 31.1 pg (27.0-33.0); MEAN CORPUSCULAR HGB CONC 32.7 g/dl (32.0-36.5); MEAN CORPUSCULAR VOLUME 95.2 fl (80.0-96.0); MONO # 0.5 10^3/uL (0.0-0.8); MONO % 7.3 % (2.0-8.0); NEUTROPHILS # 3.4 10^3/uL (1.5-8.5); NEUTROPHILS % 50.8 % (36.0-66.0); PLATELET COUNT, AUTOMATED 321 10^3/uL (150-450); RED BLOOD COUNT 4.21 10^6/uL (4.00-5.40); WHITE BLOOD COUNT 6.7 10^3/uL (4.0-10.0)
[2021-12-28 05:23] LABS: INR 1.04
[2021-12-28 05:24] LABS: PARTIAL THROMBOPLASTIN TIME 21.1 SECONDS (25.9-37.0)
[2021-12-28 05:46] LABS: CK-MB VALUE MASS 1.9 NG/ML (<3.6); MB/CK RELATIVE INDEX 1.23 (< OR =4)
[2021-12-28 05:47] LABS: RSV AMPLIFICATION NEGATIVE (NEGATIVE)
[2021-12-28 05:51] LABS: BLOOD UREA NITROGEN 20 MG/DL (7-18); CALCIUM LEVEL 9.1 MG/DL (8.8-10.2); CARBON DIOXIDE LEVEL 26 MEQ/L (21-32); CHLORIDE LEVEL 105 MEQ/L (98-107); CREATININE FOR GFR 0.83 MG/DL (0.55-1.30); GLOMERULAR FILTRATION RATE > 60.0 (>39); GLUCOSE, FASTING 114 MG/DL (70-100); NT-PRO BNP 532 PG/ML (<450); POTASSIUM SERUM 4.8 MEQ/L (3.5-5.1); SODIUM LEVEL 137 MEQ/L (136-145); THYROID STIMULATING HORMONE 0.827 uIU/ML (0.358-3.740)
[2021-12-28] MEDS ORDERED: VITA100093 PO (07:33)
[2021-12-28] MEDS ORDERED: HOME MED LIST COMPLETE! XX SCH (08:30)
[2021-12-28] MEDS ORDERED: LOSARTAN 25 MG TAB PO SCH (09:00)
[2021-12-28 13:38] LABS: CK-MB VALUE MASS 1.3 NG/ML (<3.6); MB/CK RELATIVE INDEX 1.34 (< OR =4)
[2021-12-28] MEDS: FLECAINIDE 50MG TABLET PO SCH ×2 (14:06→20:57)
[2021-12-28] MEDS: APIXABAN 5 MG TAB (ELIQUIS) PO SCH ×2 (14:06→20:57)
[2021-12-28] MEDS: MULTIVITAMINS/MINERALS THERAP 1 TAB PO SCH (14:06)
[2021-12-28 17:10] VITALS: BP 143/96
[2021-12-28] MEDS ORDERED: ACETAMINOPHEN TAB 650MG DOSE (2X325MG) PO PRN (19:55)
[2021-12-28 20:00] VITALS: BP 110/58
[2021-12-29] VITALS (9 sets, daily range): BP systolic 123–200; BP diastolic 62–96
[2021-12-29 05:46] LABS: HEMATOCRIT 37.4 % (36.0-47.0); HEMOGLOBIN 12.5 g/dl (12.0-15.5); MEAN CORPUSCULAR HEMOGLOBIN 31.3 pg (27.0-33.0); MEAN CORPUSCULAR HGB CONC 33.4 g/dl (32.0-36.5); MEAN CORPUSCULAR VOLUME 93.5 fl (80.0-96.0); PLATELET COUNT, AUTOMATED 285 10^3/uL (150-450); WHITE BLOOD COUNT 5.6 10^3/uL (4.0-10.0)
[2021-12-29 06:38] LABS: ALBUMIN 3.5 GM/DL (3.2-5.2); ALT/SGPT 21 U/L (12-78); BILIRUBIN,TOTAL 0.4 MG/DL (0.2-1.0); BLOOD UREA NITROGEN 23 MG/DL (7-18); CALCIUM LEVEL 9.1 MG/DL (8.8-10.2); CARBON DIOXIDE LEVEL 26 MEQ/L (21-32); CHLORIDE LEVEL 108 MEQ/L (98-107); CREATININE FOR GFR 0.91 MG/DL (0.55-1.30); GLOMERULAR FILTRATION RATE > 60.0 (>39); GLUCOSE, FASTING 89 MG/DL (70-100); POTASSIUM SERUM 4.4 MEQ/L (3.5-5.1); SODIUM LEVEL 142 MEQ/L (136-145); TOTAL PROTEIN 6.5 GM/DL (6.4-8.2)
[2021-12-29] MEDS ORDERED: LOSARTAN 50MG TABLET PO SCH (09:00)
[2021-12-29] MEDS ORDERED: LOSARTAN 25 MG TAB PO SCH (09:00)
[2021-12-29] MEDS: APIXABAN 5 MG TAB (ELIQUIS) PO SCH (09:46)
[2021-12-29] MEDS: FLECAINIDE 50MG TABLET PO SCH (09:46)
[2021-12-29] MEDS: MULTIVITAMINS/MINERALS THERAP 1 TAB PO SCH (09:46)
[2021-12-29] MEDS ORDERED: COZA1TAB PO (11:17)
[2021-12-29] MEDS ORDERED: HYDR-3363 PO (11:24)
== END 2021-12-29 14:11 | disposition home or self-care (01) | DRG 312 ==
LOC: M ED 04:38 → EDBD 04:38 → M ED INP 13:18 → ENRESERV 13:45 → M PCU 17:07
PROVIDERS: ADMIT Internal Medicine; ATTEND Internal Medicine
DX: R55 Syncope and collapse (principal); R00.1 Bradycardia, unspecified; I10 Essential (primary) hypertension; I48.91 Unspecified atrial fibrillation; E04.1 Nontoxic single thyroid nodule; F41.9 Anxiety disorder, unspecified; Z79.01 Long term (current) use of anticoagulants; Z79.899 Other long term (current) drug therapy; Z88.6 Allergy status to analgesic agent; Z88.8 Allergy status to other drugs, medicaments and biological substances

== ENCOUNTER 2023-11-22 11:15 | Emergency (ER) | payer MEDICARE ==
[~2023-11-22] VITALS: Ht 154.9 cm; Wt 47.7 kg
[~2023-11-22 11:15] MED LIST changes: +HYDR-3363 PO; +LOSA-527 PO; +MIRA3350 PO; +VITA100093 PO
[2023-11-22 12:08] LABS: BASO % 0.7 % (0.0-1.0); EOS # 0.2 10^3/uL (0.0-0.5); EOS % 3.1 % (0.0-3.0); HEMATOCRIT 38.2 % (36.0-47.0); HEMOGLOBIN 12.7 g/dl (12.0-15.5); LYMPH % 36.9 % (24.0-44.0); MEAN CORPUSCULAR HEMOGLOBIN 31.5 pg (27.0-33.0); MEAN CORPUSCULAR HGB CONC 33.2 g/dl (32.0-36.5); MEAN CORPUSCULAR VOLUME 94.8 fl (80.0-96.0); MONO # 0.4 10^3/uL (0.0-0.8); MONO % 7.7 % (2.0-8.0); NEUTROPHILS # 2.8 10^3/uL (1.5-8.5); NEUTROPHILS % 51.4 % (36.0-66.0); PLATELET COUNT, AUTOMATED 276 10^3/uL (150-450); RED BLOOD COUNT 4.03 10^6/uL (4.00-5.40); WHITE BLOOD COUNT 5.5 10^3/uL (4.0-10.0)
[2023-11-22 12:32] LABS: INR 1.16; PROTHROMBIN TIME 14.5 SECONDS (12.5-14.5)
[2023-11-22 12:56] LABS: ALKALINE PHOSPHATASE 73 U/L (46-116); ALT/SGPT 21 U/L (7.0-40); AST/SGOT 17 U/L (<34); BILIRUBIN,DIRECT 0.1 MG/DL (<0.4); BILIRUBIN,TOTAL 0.5 MG/DL (0.3-1.2); BLOOD UREA NITROGEN 21 MG/DL (9-23); CALCIUM LEVEL 9.5 MG/DL (8.3-10.6); CARBON DIOXIDE LEVEL 28 MMOL/L (20-31); CHLORIDE LEVEL 100 MMOL/L (98-107); CK-MB VALUE MASS 2.1 NG/ML (<3.6); CPK CREATINE PHOSPHOKINASE 93 U/L (34-145); CREATININE FOR GFR 0.86 MG/DL (0.55-1.30); GLOMERULAR FILTRATION RATE > 60.0 (>39); GLUCOSE, FASTING 84 MG/DL (74-106); LIPASE 35 U/L (12-53); MB/CK RELATIVE INDEX 2.25 (< OR =4); SODIUM LEVEL 132 MMOL/L (136-145); THYROID STIMULATING HORMONE 1.557 uIU/ML (0.55-4.78); TOTAL PROTEIN 6.8 G/DL (5.7-8.2)
[2023-11-22] MEDS ORDERED: ISOVUE-370 76% 100ML VIAL As Ordered ONE (13:17)
[2023-11-22 13:39] LABS: CK-MB VALUE MASS 1.9 NG/ML (<3.6)
[2023-11-22 13:41] LABS: MB/CK RELATIVE INDEX 2.53 (< OR =4)
[2023-11-22 15:33] VITALS: BP 137/68; TEMP 97.3; O2SAT 100
== END 2023-11-22 15:34 | disposition home or self-care (01) ==
LOC: M ED 11:15
DX: R07.9 Chest pain, unspecified (principal); R00.1 Bradycardia, unspecified; I25.2 Old myocardial infarction; I10 Essential (primary) hypertension; F41.9 Anxiety disorder, unspecified; Z86.79 Personal history of other diseases of the circulatory system; Z88.6 Allergy status to analgesic agent; Z88.1 Allergy status to other antibiotic agents; Z79.01 Long term (current) use of anticoagulants; Z79.811 Long term (current) use of aromatase inhibitors; Z79.899 Other long term (current) drug therapy
CPT/HCPCS: 36415; 71045; 71275; 80048; 80076; 82550; 82553; 83690; 84443; 84484; 85025; 85610; 93005; 93041; 94760; 99285; Q9967

== ENCOUNTER 2024-07-20 06:46 | Emergency (ER) | payer MEDICARE, MEDICAID ==
[~2024-07-20] VITALS: Ht 154.9 cm; Wt 52.3 kg
[2024-07-20 06:50] VITALS: TEMP 98
[2024-07-20 08:11] LABS: BASO # 0.1 10^3/uL (0.0-0.2); BASO % 0.9 % (0.0-1.0); EOS # 0.1 10^3/uL (0.0-0.5); EOS % 1.7 % (0.0-3.0); HEMATOCRIT 39.3 % (36.0-47.0); LYMPH # 0.9 10^3/uL (1.5-5.0); LYMPH % 15.5 % (24.0-44.0); MEAN CORPUSCULAR HEMOGLOBIN 30.7 pg (27.0-33.0); MEAN CORPUSCULAR HGB CONC 33.1 g/dl (32.0-36.5); MEAN CORPUSCULAR VOLUME 92.9 fl (80.0-96.0); MONO # 0.4 10^3/uL (0.0-0.8); MONO % 6.8 % (2.0-8.0); NEUTROPHILS # 4.4 10^3/uL (1.5-8.5); NEUTROPHILS % 74.8 % (36.0-66.0); PLATELET COUNT, AUTOMATED 288 10^3/uL (150-450); RED BLOOD COUNT 4.23 10^6/uL (4.00-5.40); WHITE BLOOD COUNT 5.9 10^3/uL (4.0-10.0)
[2024-07-20 08:26] LABS: INR 1.19; PARTIAL THROMBOPLASTIN TIME 32.3 SECONDS (24.8-34.2); PROTHROMBIN TIME 15.4 SECONDS (12.5-14.5)
[2024-07-20 08:30] LABS: LIPASE 33 U/L (12-53)
[2024-07-20 08:32] LABS: ALBUMIN 3.7 G/DL (3.2-5.2); ALKALINE PHOSPHATASE 76 U/L (35-104); ALT/SGPT 22 U/L (7.0-40); AST/SGOT 20 U/L (<34); BILIRUBIN,DIRECT 0.1 MG/DL (<0.4); BILIRUBIN,TOTAL 0.5 MG/DL (0.3-1.2); BLOOD UREA NITROGEN 24 MG/DL (9-23); CALCIUM LEVEL 9.3 MG/DL (8.3-10.6); CARBON DIOXIDE LEVEL 29 MMOL/L (20-31); CHLORIDE LEVEL 101 MMOL/L (98-107); CK-MB VALUE MASS 1.2 NG/ML (<3.6); CPK CREATINE PHOSPHOKINASE 112 U/L (34-145); CREATININE FOR GFR 0.85 MG/DL (0.55-1.30); GLOMERULAR FILTRATION RATE > 60.0 (>39); GLUCOSE, FASTING 92 MG/DL (74-106); MB/CK RELATIVE INDEX 1.07 (< OR =4); POTASSIUM SERUM 4.5 MMOL/L (3.5-5.1); SODIUM LEVEL 137 MMOL/L (136-145); TOTAL PROTEIN 6.9 G/DL (5.7-8.2)
[2024-07-20 08:34] LABS: FREE T4 1.22 NG/DL (0.89-1.76); THYROID STIMULATING HORMONE 1.252 uIU/ML (0.55-4.78)
[2024-07-20 09:58] LABS: CK-MB VALUE MASS 1.8 NG/ML (<3.6)
[2024-07-20 10:00] LABS: MB/CK RELATIVE INDEX 1.76 (< OR =4)
[2024-07-20] MEDS ORDERED: ISOVUE-370 76% 100ML VIAL As Ordered ONE (11:07)
[2024-07-20 12:45] VITALS: BP 166/72; O2SAT 99
== END 2024-07-20 12:40 | disposition home or self-care (01) ==
LOC: M ED 06:46
DX: R07.9 Chest pain, unspecified (principal); K44.9 Diaphragmatic hernia without obstruction or gangrene; J98.11 Atelectasis; I10 Essential (primary) hypertension; R00.1 Bradycardia, unspecified; Z86.79 Personal history of other diseases of the circulatory system; Z88.1 Allergy status to other antibiotic agents; Z88.6 Allergy status to analgesic agent; Z79.01 Long term (current) use of anticoagulants; Z79.1 Long term (current) use of non-steroidal anti-inflammatories (NSAID); Z79.899 Other long term (current) drug therapy
CPT/HCPCS: 36415; 71046; 71275; 80048; 80076; 82550; 82553; 83690; 84439; 84443; 84484; 85025; 85610; 85730; 93005; 93041; 94760; 99285; Q9967

== ENCOUNTER 2024-09-15 06:00 | Emergency (ER) | payer MEDICARE, MEDICAID ==
[~2024-09-15] VITALS: Ht 154.9 cm; Wt 48.7 kg
[2024-09-15 10:36] VITALS: BP 122/63; TEMP 98.6; O2SAT 99
== END 2024-09-15 10:51 | disposition home or self-care (01) ==
LOC: M ED 06:00
DX: T50.901A Poisoning by unspecified drugs, medicaments and biological substances, accidental (unintentional), initial encounter (principal); I25.2 Old myocardial infarction; I10 Essential (primary) hypertension; F41.9 Anxiety disorder, unspecified; M54.50 Low back pain, unspecified; Z86.79 Personal history of other diseases of the circulatory system; Z88.6 Allergy status to analgesic agent; Z88.1 Allergy status to other antibiotic agents; Z79.01 Long term (current) use of anticoagulants; Z79.899 Other long term (current) drug therapy; Z79.1 Long term (current) use of non-steroidal anti-inflammatories (NSAID)